=== PATIENT | female | born 1980 | race Caucasian/White ===

== ENCOUNTER 2016-11-02 07:24 | Day surgery (SDC) | payer BC ==
--- NOTE | ~2016-11-02 | EGD ---
EGD REPORT [facility] [address] [id number] NAME: KASSANDRA FOX : [birth year] STATUS : REG [facility] PAT#: [id number] AGE: 35 ADM/REG DATE : 11/02/16 MR#: [id number] REPORT SERV DATE: 11/02/16 DICTATED BY: NIGEL WELDON DATE: 11/02/16 REPORT STATUS : Draft [facility]ANS[facility]IBED BY: [facility] DATE: 11/02/16 [facility] Patient Name: Kassandra Fox Date of : 1980 Attending MD: EMDUND WELDON MD Procedure Date No Time: 11/02/2016 Procedure: Colonoscopy Indications: This is the patient's first colonoscopy, Hematochezia Referring MD: AMARIS HOGAN MD Medicines: See the Anesthesia note for documentation of the administered medications Complications: No immediate complications. Estimated blood loss: None. Procedure: Pre-Anesthesia Assessment: - ASA Grade Assessment: II - A patient with mild systemic disease. - Prior to the procedure, a History and Physical was performed, and patient medications and allergies were reviewed. The patient's tolerance of previous anesthesia was also reviewed. The risks and benefits of the procedure and the sedation options and risks were discussed with the patient. All questions were answered, and informed consent was obtained. Prior Anticoagulants: The patient has taken no previous anticoagulant or antiplatelet agents. After reviewing the risks and benefits, the patient was deemed in satisfactory condition to undergo the procedure. After I obtained informed consent, the scope was passed under direct vision. Throughout the procedure, the patient's blood pressure, pulse, and oxygen saturations were monitored continuously. The PCF [id number] was introduced through the anus and advanced to the terminal ileum. The ileocecal valve, appendiceal orifice, terminal ileum and rectum were photographed. The entire colon was examined. The colonoscopy was performed without difficulty. The patient tolerated the procedure well. The quality of the bowel preparation was adequate. Findings: The perianal and digital rectal examinations were normal. The terminal ileum appeared normal. Non-bleeding hemorrhoids were found during retroflexion and were Grade I (internal hemorrhoids that do not prolapse). No other significant abnormalities were identified in a careful examination of the remainder of the colon. EGD REPORT [address] [address] NAME: KASSANDRA FOX : [birth year] STATUS : REG [facility]#: [id number] AGE: 35 ADM/REG DATE : 11/02/16 MR#: [id number] REPORT SERV DATE: 11/02/16 DICTATED BY: NIGEL WELDON DATE: 11/02/16 REPORT STATUS : Draft TRANSCRIBED BY: [employer] DATE: 11/02/16 Impression: - The examined portion of the ileum was normal. - Non-bleeding hemorrhoids. Recommendation: - Patient has a contact number available for emergencies. The signs and symptoms of potential delayed complications were discussed with the patient. Return to normal activities tomorrow. Written discharge instructions were provided to the patient. - Regular diet. - Discharge patient to home. - Continue present medications. - Repeat colonoscopy at age 50 for surveillance. Procedure Code(s): --- Professional --- 27885, Colonoscopy, flexible, proximal to splenic flexure; diagnostic, with or without collection of specimen(s) by brushing or washing, with or without colon decompression (separate procedure) Diagnosis Code(s): --- Professional --- K64.0, First degree hemorrhoids K92.1, Melena CPT copyright 2013 [employer]. All rights reserved. The codes documented in this report are preliminary and upon cigar wrapper review may be revised to meet current compliance requirements. EDMUND WELDON MD 11/02/2016 9:28 AM This report has been signed electronically. Number of Addenda: 0 Note Initiated On: 11/02/2016 8:51 AM Scope Withdrawal Time 0 hours 7 minutes 42 seconds [id number] [place] [id number]
[~2016-11-02 07:24] MED LIST: CLARIT10 PO; MUCINEX600 MG PO; PROAIR HFA INH; SINGULAIR1 PO
== END 2016-11-02 23:59 | disposition home or self-care (01) ==
LOC: DMU 07:24
PROVIDERS: Internal Medicine Gastroenterology
PROC: 0DJD8ZZ Inspection of Lower Intestinal Tract, Via Natural or Artificial Opening Endoscopic (ICD-10-PCS; principal; 2016-11-02 09:00)
DX: K64.0 First degree hemorrhoids (principal); K92.1 Melena; Z79.899 Other long term (current) drug therapy; E66.01 Morbid (severe) obesity due to excess calories; Z68.42 Body mass index [BMI] 45.0-49.9, adult
CPT/HCPCS: 84703